=== PATIENT | female | born 1965 | race Caucasian/White ===

== ENCOUNTER 2016-09-30 13:56 | Emergency (ER) | payer OTHER | END 2016-09-30 13:59 | disposition left against medical advice (07) | LOC: ER1 13:56 | DX: Z53.21 Procedure and treatment not carried out due to patient leaving prior to being seen by health care provider (principal) | CPT/HCPCS: 81001 ==

== ENCOUNTER 2016-10-31 08:44 | Emergency (ER) | payer OTHER ==
[2016-10-31 09:32] LABS: HEMOGLOBIN 12.7 gm/dl (12.3-15.3); RED BLOOD COUNT 4.33 M/UL (4.00-5.10); WHITE BLOOD COUNT 10.6 K/UL (4.5-11.0)
[2016-10-31 09:59] LABS: BUN/CREATININE RATIO 34 (0-10)
== END 2016-10-31 11:20 | disposition home or self-care (01) ==
LOC: ER1 08:44
PROVIDERS: Emergency Medicine
DX: R11.2 Nausea with vomiting, unspecified (principal); R10.9 Unspecified abdominal pain; Z90.49 Acquired absence of other specified parts of digestive tract
CPT/HCPCS: 36415; 80053; 81001; 82009; 82150; 82550; 82553; 83605; 83690; 83874; 84484; 85025; 96374; 96375; 99284; J2405